=== PATIENT | female | born 2005 | race Caucasian/White ===

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

== ENCOUNTER → 2023-02-12 | Outpatient (CLI) | payer OTHER | END | disposition home or self-care (01) | LOC: LABWHC1 15:15 | PROVIDERS: ATTEND Psychiatry & Neurology Neurology | DX: Z01.818 Encounter for other preprocedural examination (principal); I49.9 Cardiac arrhythmia, unspecified; I45.10 Unspecified right bundle-branch block; R94.31 Abnormal electrocardiogram [ECG] [EKG] | CPT/HCPCS: 36415; 93005 ==

== ENCOUNTER 2024-04-07 07:02 | Day surgery (SDC) | payer OTHER ==
[2024-03-31 13:19] VITALS: BMI 24.7
[2024-04-07 07:46] VITALS: BP 100/61; PULSE 76; RESP 16; TEMP 98.7
[2024-04-07] MEDS: SODIUM CHLORIDE 0.9% 1,000 ML IV SCH (07:47)
[2024-04-07] MEDS: SODIUM CHLORIDE 0.9% 500 ML 500 ML IV ONE (07:47)
--- NOTE | 2024-04-07 16:52 | P.EPPROC ---
- EP Procedure Note Electrophysiology Procedure Note: Diagnosis Presyncope Twelve-lead EKG shows sinus rhythm normal TN narrow QRS normal QT interval Tilt table test per protocol Baseline blood pressure 116/65 mmHg, baseline heart rate 73 beats a minute Patient is tilted upright in angle of 70 degrees per protocol She felt dizzy lightheaded nauseous While her blood pressure was in the normal range, her heart rate increased to 100 beats a minute and remained elevated up to 131 beats a minute when she will felt most symptomatic When she was laid supine heart rate normalized Impression normal twelve-lead EKG Orthostatic intolerance/POTS
== END 2024-04-07 11:47 | disposition home or self-care (01) ==
LOC: CATHEP 07:02
PROVIDERS: ATTEND Internal Medicine Clinical Cardiac Electrophysiology
DX: R55 Syncope and collapse
CPT/HCPCS: 81025; 93660